=== PATIENT | female | born 1940 | race Two or more races ===

== ENCOUNTER 2023-03-03 12:23 | Inpatient (IN) | payer OTHER ==
[~2023-03-03] VITALS: Ht 167.6 cm; Wt 64.0 kg
[2023-03-03] MEDS ORDERED: DOPamine 1600MCG/ML D5W 250 ML IV SCH (12:30)
[2023-03-03] MEDS ORDERED: NOREPINEPHRINE 8 MG/250ML KIT 250 ML IV ONE (12:36)
[2023-03-03] MEDS ORDERED: MIDAZOLAM DRIP 50 mg/50mL 50 ML IV ONE (12:38)
[2023-03-03] MEDS ORDERED: MIDAZOLAM DRIP 50 mg/50mL 50 ML IV SCH (12:45)
[2023-03-03] MEDS ORDERED: NOREPINEPHRINE 8 MG/250ML KIT 250 ML IV SCH (12:45)
[2023-03-03 12:58] VITALS: TEMP 97.9
[2023-03-03 13:00] VITALS: RESP 16; O2SAT 100
[2023-03-03 13:03] LABS: Basophils # (auto) 0.1 10 ^3/uL (0-0.2); Basophils % (auto) 0.7 % (0.0-2.0); Eosinophils # (auto) 0 10 ^3/uL (0-0.8); Eosinophils % (auto) 0.3 % (0.0-7.0); Hematocrit 32.3 % (36.0-46.0); Hemoglobin 10.7 g/dL (12.2-16.2); Lymphocytes # (auto) 1.6 10 ^3/uL (0.4-5.4); Mean Corpuscular Hemoglobin 29.3 pg (28.0-32.0); Mean Corpuscular Volume 88.8 fL (80.0-100.0); Monocytes # (auto) 0.3 10 ^3/uL (0-1.3); Monocytes % (auto) 3.5 % (0.0-12.0); Neutrophils # (auto) 6.8 10 ^3/uL (1.6-8.6); Neutrophils % (auto) 77.5 % (37.0-80.0); Nucleated Red Blood Cells % 0.1 %; Red Blood Cells 3.64 10^6/uL (4.0-5.20); Red Cell Distribution Width 15.1 % (11.8-14.3); White Blood Cell 8.8 10^3/uL (4.4-10.8)
[2023-03-03 13:29] LABS: Lactic Acid w/Reflex 6.4 mmol/L (0.4-2.0)
[2023-03-03 13:40] LABS: Alanine Aminotransferase 105 U/L (7-40); Alkaline Phosphatase 54 U/L (46-116); Anion Gap 10 (5-15); Aspartate Aminotransferase 97 U/L (13-40); BUN/Creatinine Ratio 16.8 (10.0-20.0); Blood Urea Nitrogen 18 mg/dL (9-23); Calcium 8.6 mg/dL (8.5-10.1); Carbon Dioxide 33 mmol/L (20-30); Chloride 97 mmol/L (98-107); Glucose 223 mg/dL (74-106); Potassium 3.9 mmol/L (3.5-5.1); Sodium 140 mmol/L (136-145)
[2023-03-03 13:41] LABS: Albumin 3.3 g/dL (3.2-4.8); Bilirubin, Total 0.3 mg/dL (0.2-1.0); Total Protein 5.4 g/dL (5.7-8.2)
[2023-03-03] MEDS ORDERED: VASOPRESSIN 20 UNITS in SODIUM CHL 0.9% 99 ML IV SCH (13:45)
[2023-03-03] MEDS ORDERED: PHENYLEPHRINE IV 250 ML IV ONE ×2 (14:28→14:30)
[2023-03-03] MEDS ORDERED: PANTOPRAZOLE 40 MG/10 ML VIAL INJ IV ONE (14:45)
[2023-03-03] MEDS ORDERED: MORPHINE SULFATE INJ 2 MG/ml SYRG IV PRN ×2 (14:45→19:15)
[2023-03-03] MEDS ORDERED: SODIUM CHLORIDE 0.9% 1,000 ML IV SCH (14:45)
[2023-03-03] MEDS ORDERED: NITROGLYCERIN 0.4 MG SL TAB SL PRN (14:45)
[2023-03-03 14:58] LABS: Base Excess 0.3 mmol/L (-2.0-2.0)
[2023-03-03] MEDS ORDERED: ATROPINE SULF 1 MG/10ml SYR IV ONE (15:00)
[2023-03-03] MEDS ORDERED: EPINEPHrine HCL 250 ML IV SCH (15:00)
[2023-03-03] MEDS ORDERED: FLUT50SP NAS (16:04)
[2023-03-03] MEDS ORDERED: ENAL5TAB22 PO (16:04)
[2023-03-03] MEDS ORDERED: MUPI2OIN2 TOP (16:04)
[2023-03-03] MEDS ORDERED: AMIT-256 PO (16:04)
[2023-03-03] MEDS ORDERED: CEPH500C PO (16:04)
[2023-03-03] MEDS ORDERED: PANT40T PO (16:04)
[2023-03-03] MEDS ORDERED: LACT10SO3 PO (16:04)
[2023-03-03] MEDS ORDERED: CARV25TA55 PO (16:04)
[2023-03-03] MEDS ORDERED: MECL-126 PO (16:04)
[2023-03-03] MEDS ORDERED: SODI1SOL PO (16:04)
[2023-03-03] MEDS ORDERED: CARV12.544 PO (16:04)
[2023-03-03 16:46] LABS: Urine Bacteria NONE SEEN /hpf (None Seen); Urine Blood Negative /uL (Negative); Urine Clarity Clear (Clear); Urine Color Colorless (Yellow); Urine Protein, UAD Negative (Negative); Urine Urobilinogen Normal (Negative); Urine WBC 3 /hpf (0 - 5)
[2023-03-03 16:47] LABS: Urine Hyaline Cast NONE SEEN /lpf (0 - 2)
[2023-03-03 16:54] LABS: Amphetamine Screen, Urine Neg (NEGATIVE); Barbiturate Scree,Urine Neg (NEGATIVE); Benzodiazephine Screen, Urine Neg (NEGATIVE); Cocaine Screen, Urine Neg (NEGATIVE); Opiate Scree,Urine Neg (NEGATIVE)
[2023-03-03 16:55] LABS: Cannabinoid Screen, Urine Neg (NEGATIVE); Phencyclidine Screen, Urine Neg (NEGATIVE)
[2023-03-03] MEDS ORDERED: CEFEPIME 1GM/ 50ML 50 ML IV ONE (17:00)
[2023-03-03] MEDS ORDERED: VANCOMYCIN PER PHARMACY 0 MG IV SCH (17:00)
[2023-03-03 18:02] VITALS: O2SAT 100
[2023-03-03] MEDS ORDERED: LORazepam 2MG/ML-1ML VIAL ONE (19:11)
[2023-03-03 19:13] VITALS: BP 63/38; PULSE 21; RESP 16
[2023-03-03] MEDS ORDERED: LORazepam 2MG/ML-1ML VIAL IV PRN (19:15)
[2023-03-03 19:27] LABS: Magnesium 1.8 mg/dL (1.6-2.6)
[2023-03-03] MEDS ORDERED: VANCOMYCIN 1GM/250ML 250 ML IV ONE ×2 (19:30→22:00)
[2023-03-04] MEDS ORDERED: ENOXAPARIN SOD 40 MG/0.4 ML SYRINGE SC SCH (10:00)
[2023-03-04] MEDS ORDERED: PANTOPRAZOLE 40 MG/10 ML VIAL INJ IV SCH (10:00)
== END 2023-03-03 19:51 | DRG 871 ==
LOC: ER 12:23 → EDBD 12:23 → ER 14:42 → TELE 14:42
PROVIDERS: ADMIT Nurse Practitioner Family; ATTEND Nurse Practitioner Family
PROC: 5A12012 Performance of Cardiac Output, Single, Manual (ICD-10-PCS; principal; 2023-03-03)
PROC: 30233N1 Transfusion of Nonautologous Red Blood Cells into Peripheral Vein, Percutaneous Approach (ICD-10-PCS; 2023-03-03)
PROC: 0BH17EZ Insertion of Endotracheal Airway into Trachea, Via Natural or Artificial Opening (ICD-10-PCS; 2023-03-03)
PROC: 5A1935Z Respiratory Ventilation, Less than 24 Consecutive Hours (ICD-10-PCS; 2023-03-03)
DX: A41.9 Sepsis, unspecified organism (principal); I50.43 Acute on chronic combined systolic (congestive) and diastolic (congestive) heart failure; J96.01 Acute respiratory failure with hypoxia; R65.21 Severe sepsis with septic shock; I45.2 Bifascicular block; I13.0 Hypertensive heart and chronic kidney disease with heart failure and stage 1 through stage 4 chronic kidney disease, or unspecified chronic kidney disease; N17.9 Acute kidney failure, unspecified; D64.9 Anemia, unspecified; I46.9 Cardiac arrest, cause unspecified; R00.1 Bradycardia, unspecified; R74.01 Elevation of levels of liver transaminase levels; Z66 Do not resuscitate; N18.30 Chronic kidney disease, stage 3 unspecified; R74.8 Abnormal levels of other serum enzymes; R56.9 Unspecified convulsions; M81.0 Age-related osteoporosis without current pathological fracture; Z85.72 Personal history of non-Hodgkin lymphomas; Z90.710 Acquired absence of both cervix and uterus
CPT/HCPCS: 36415; 36556; 36600; 71045; 80053; 80061; 80307; 81001; 82805; 83036; 83605; 83735; 83880; 84443; 84484; 85025; 86850; 86900; 86901; 86920; 87040; 92950; 93005; 93306; 94002; 96374; 99291; C9113; G0378; J0171; J2250